=== PATIENT | female | born 1990 | race African-American/Black ===

== ENCOUNTER 2016-10-19 12:20 | Emergency (ER) | payer MEDICAID, OTHER ==
[~2016-10-19] VITALS: Ht 157.5 cm; Wt 49.9 kg
[~2016-10-19 12:20] MED LIST: CEPHALEXIN500 MG ORAL; HYDROCORTISONE28 G5 TP; PREDNISONE20 MG ORAL; benadryl
[2016-10-19 12:21] VITALS: BP 106/72
[2016-10-19 12:59] VITALS: BP 106/72
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
[2016-10-19] MEDS ORDERED: IBUPROFEN600 MG ORAL (13:07)
[2016-10-19 13:34] VITALS: BP 106/72
== END 2016-10-19 13:36 | disposition home or self-care (01) ==
LOC: EMR 12:40
DX: M25.512 Pain in left shoulder (principal); G89.4 Chronic pain syndrome
CPT/HCPCS: 99283

== ENCOUNTER 2017-02-02 14:57 | Emergency (ER) | payer MEDICAID ==
[~2017-02-02] VITALS: Ht 160 cm; Wt 59.4 kg
[~2017-02-02 14:57] MED LIST changes: +IBUPROFEN600 MG ORAL
[2017-02-02 15:48] LABS: APPEARANCE,URINE CLEAR; KETONES,URINE 1+ (NEGATIVE); LEUKOCYTE ESTERASE ,URINE 2+ (NEGATIVE); NITRITE,URINE NEGATIVE (NEGATIVE); PH,URINE 5 (4.5-8.0); PROTEIN,URINE 1+ (NEGATIVE); UROBILINOGEN,URINE 4 MG/DL (0.0-1.0)
[2017-02-02 15:54] LABS: ICTOTEST NEGATIVE
[2017-02-02 16:04] LABS: BACTERIA,URINE FEW /HPF; MUCUS,URINE MANY /LPF (NONE/OCC); SQUAMOUS EPITHELIAL CELL,UR MANY /LPF (NONE/OCC)
[2017-02-02 16:40] LABS: BASOPHILS % (AUTO) 1.2 % (0.0-2.0); EOSINOPHILS % (AUTO) 1.8 % (0.0-3.0); LYMPHOCYTES % (AUTO) 38.7 % (20.0-45.0); MEAN CORPUSCULAR HEMOGLOBIN 27.7 PG (27.0-31.0); MEAN CORPUSCULAR HGB CONC 31.6 G/DL (32.0-36.0); MEAN CORPUSCULAR VOLUME 88 FL (80-99); MEAN PLATELET VOLUME 6.7 FL (6.5-10.1); NEUTROPHILS % (AUTO) 52.3 % (45.0-75.0); PLATELET COUNT 241 K/UL (150-450); RED BLOOD COUNT 4.43 M/UL (4.20-5.40); RED CELL DISTRIBUTION WIDTH 11.7 % (11.6-14.8)
[2017-02-02 16:42] VITALS: BP 120/60
[2017-02-02 16:56] LABS: ALANINE AMINOTRANSFERASE 8 U/L (3-33); ALBUMIN/GLOBULIN RATIO 1.2 (1.0-2.7); ANION GAP 11 (5-15); ASPARTATE AMINO TRANSFERASE 14 U/L (5-40); CALCIUM 9.4 mg/dL (8.6-10.2); CARBON DIOXIDE 25 mEQ/L (20-30); CHLORIDE 102 mEQ/L (98-107); CREATININE 0.8 mg/dL (0.5-0.9); GLOMERULAR FILTRATION RATE > 60 mL/min (>60); HEMOLYSIS 2; LIPASE 30 U/L (< 60); POTASSIUM 3.8 mEQ/L (3.4-4.9); SODIUM 138 mEQ/L (135-145); TOTAL PROTEIN 7.6 g/dL (6.6-8.7)
[2017-02-02] MEDS ORDERED: PRENATAL VITAM1 EAC8 PO (18:52)
[2017-02-02] MEDS ORDERED: ZOFRAN4 M3 ORAL (18:52)
[2017-02-02 19:12] VITALS: BP 124/66
--- NOTE | 2017-02-02 22:46 | Emergency Room Report ---
History of Present Illness General Chief Complaint: Abdominal Pain Source: Patient Present Illness [facility] The patient is a 26-year-old female presenting for abdominal pain and vaginal bleeding. She states her last normal menstrual period was 4 weeks prior. She states that she is currently lightly spotting which is abnormal for her period. Pain is an 8/10 dull ache to the mid lower abdomen and does not radiate. She denies any known provoking or alleviating factors. She admits to nausea but denies vomiting. She denies any back pain. She denies any other symptoms including F, chills, back pain, CP, SOB, MEREDITH Allergies: Coded Allergies: No Known Allergies (Unverified , 05/22/13) Patient History Past Medical History: see triage record Pertinent Family History: none Last Menstrual Period: on period Now: Yes Reviewed Nursing Documentation: PMH: Agreed, PSxH: Agreed Nursing Documentation-PMH Past Medical History: No Stated History Review of Systems All Other Systems: negative except mentioned in HPI Physical Exam Vital Signs Date Time Temp Pulse Resp B/P (MAP) Pulse Ox O2 Delivery O2 Flow Rate FiO2 02/02/17 15:09 98.1 63 14 112/54 98 Room Air Sp02 EP Interpretation: reviewed, normal General Appearance: no apparent distress, alert, GCS 15, non-toxic Head: normocephalic, atraumatic Eyes: bilateral eye normal inspection, bilateral eye PERRL ENT: hearing grossly normal, normal pharynx, no angioedema, normal voice Neck: full range of motion, supple/symm/no masses Respiratory: chest non-tender, lungs clear, normal breath sounds, speaking full sentences Cardiovascular #1: regular rate, rhythm, no edema Gastrointestinal: normal inspection, normal bowel sounds, no guarding, tenderness - suprapubic Genitourinary: normal inspection, no CVA tenderness Musculoskeletal: back normal, gait/station normal, normal range of motion, non- tender, calf tenderness Neurologic: alert, oriented x3, responsive, motor strength/tone normal, sensory intact, speech normal Psychiatric: judgement/insight normal, memory normal, mood/affect normal, no suicidal/homicidal ideation Skin: normal color, no rash, warm/dry, well hydrated Medical Decision Making PA Attestation Dr. West is my supervising physician. Patient management was discussed with my supervising physician Diagnostic Impression: Primary Impression: Threatened miscarriage ER Course The patient is a 26-year-old female presenting for abdominal pain and vaginal bleeding. Differential diagnoses considered include but not limited to Early , threatened , ectopic , hemorrhagic cyst, UTI, among others PE: NAD. Afebrile. There is tenderness to palpation over suprapubic region only. Abdomen is soft. Nondistended No CVA tenderness Beta-hCG consistent with first trimester Urinalysis shows occult blood with red blood cells OB ultrasound: IUP seen with no pole The patient is informed of these results and is told that this is a threatened miscarriage. She is to follow up with her primary doctor and OB as soon as possible ER precautions given Laboratory Tests Test 02/02/17 15:32 02/02/17 16:05 Urine Color Brown Urine Appearance Clear Urine pH 5 (4.5-8.0) Urine Specific [place] 1.025 (1.005-1.035) Urine Protein 1+ (NEGATIVE) H Urine Glucose (UA) Negative (NEGATIVE) Urine Ketones 1+ (NEGATIVE) H Urine Occult Blood 3+ (NEGATIVE) H Urine Nitrite Negative (NEGATIVE) Urine Bilirubin 1+ (NEGATIVE) H Urine Ictotest Negative Urine Urobilinogen 4 MG/DL (0.0-1.0) H Urine Leukocyte Esterase 2+ (NEGATIVE) H Urine RBC 5-10 /HPF (0 - 2) H Urine WBC 2-4 /HPF (0 - 2) Urine Squamous Epithelial Cells Many /LPF (NONE/OCC) H Urine Bacteria Few /HPF (NONE) Urine Mucus Many /LPF (NONE/OCC) H Urine HCG, Qualitative Positive White Blood Count 5.0 K/UL (4.8-10.8) Red Blood Count 4.43 M/UL (4.20-5.40) Hemoglobin 12.3 G/DL (12.0-16.0) Hematocrit 38.9 % (37.0-47.0) Mean Corpuscular Volume 88 FL (80-99) Mean Corpuscular Hemoglobin 27.7 PG (27.0-31.0) Mean Corpuscular Hemoglobin Concent 31.6 G/DL (32.0-36.0) L Red Cell Distribution Width 11.7 % (11.6-14.8) Platelet Count 241 K/UL (150-450) Mean Platelet Volume 6.7 FL (6.5-10.1) Neutrophils (%) (Auto) 52.3 % (45.0-75.0) Lymphocytes (%) (Auto) 38.7 % (20.0-45.0) Monocytes (%) (Auto) 6.0 % (1.0-10.0) Eosinophils (%) (Auto) 1.8 % (0.0-3.0) Basophils (%) (Auto) 1.2 % (0.0-2.0) Sodium Level 138 mEQ/L (135-145) Potassium Level 3.8 mEQ/L (3.4-4.9) Chloride Level 102 mEQ/L (98-107) Carbon Dioxide Level 25 mEQ/L (20-30) Anion Gap 11 (5-15) Blood Urea Nitrogen 10 mg/dL (7-23) Creatinine 0.8 mg/dL (0.5-0.9) Estimate Glomerular Filtration Rate > 60 mL/min (>60) Glucose Level 82 mg/dL (74-106) Calcium Level 9.4 mg/dL (8.6-10.2) Total Bilirubin 0.4 mg/dL (0.0-1.2) Aspartate Amino Transferase (AST) 14 U/L (5-40) Alanine Aminotransferase (ALT) 8 U/L (3-33) Alkaline Phosphatase 52 U/L (35-104) Total Protein 7.6 g/dL (6.6-8.7) Albumin 4.2 g/dL (3.5-5.2) Globulin 3.4 g/dL Albumin/Globulin Ratio 1.2 (1.0-2.7) Lipase 30 U/L (< 60) Human Chorionic Gonadotropin, Quant 66572 mIU/mL Lab Results Impression Beta hCG consistent with early . UA: blood CT/MRI/US Diagnostic Results CT/MRI/US Diagnostic Results : Imaging Test Ordered: OB US Impression IUP seen with no pole Last Vital Signs Date Time Temp Pulse Resp B/P (MAP) Pulse Ox O2 Delivery O2 Flow Rate FiO2 02/02/17 19:12 98.2 72 18 124/66 99 Room Air Status: improved Disposition: HOME, SELF-CARE Condition: Improved Scripts Vit W-Ca,Fe,FA(<1 mg) ( Vitamins) 1 Each Tablet 1 EACH PO DAILY, #30 TAB Prov: KANA RAVI 02/02/17 Ondansetron* (ZOFRAN*) 4 Mg Tablet 4 MG ORAL Q6H Y for Nausea & Vomiting, #15 TAB Prov: KANA RAVI 02/02/17 Patient Instructions: Threatened Miscarriage, Abdominal Pain During Additional Instructions: I discussed my findings with the patient. All questions and concerns have been answered. Treatment and medication compliance have been addressed. Return to ED if symptoms worsen, new symptoms arise such as worsening abdominal pain, fever, vaginal bleeding, or if needed for any reason. Patient verbalized understanding of discharge instructions. The patient is to follow up with OB as soon as possible. KANA RAVI Feb 02, 2017 22:46
--- NOTE | 2017-02-03 09:24 | Diagnostic Imaging Report ---
Indication:Vaginal bleeding and pelvic pain. Positive test. Technique: Grayscale and duplex Doppler imaging of the pelvis performed utilizing a transabdominal scan and endovaginal scan. Comparison: None Findings: There is evidence of an intrauterine . Yolk sac is identified with the gestational sac which measures to 4 weeks 5 days. pole not seen. Ovaries are unremarkable bilaterally. Small amount of free fluid noted in the cul-de-sac. Impression: Intrauterine . Viability indeterminate at this time. Considerations include normal early intrauterine versus is incomplete spontaneous . Followup ultrasound and assessment of serial quantitative beta-hCG is recommended.
== END 2017-02-02 19:14 | disposition home or self-care (01) ==
LOC: EMR 15:55
DX: O20.0 Threatened abortion (principal); Z3A.01 Less than 8 weeks gestation of pregnancy
CPT/HCPCS: 36415; 76801; 76830; 80053; 81003; 81025; 83690; 84702; 85025; 96361; 96374; 99284; J2405

== ENCOUNTER 2017-02-21 13:25 | Emergency (ER) | payer MEDICAID ==
[~2017-02-21] VITALS: Ht 160 cm; Wt 59.9 kg
[~2017-02-21 13:25] MED LIST changes: +PRENATAL VITAM1 EAC8 PO; +ZOFRAN4 M3 ORAL
[2017-02-21 13:46] VITALS: BP 97/60
[2017-02-21] MEDS ORDERED: NKM (13:50)
[2017-02-21 14:22] LABS: APPEARANCE,URINE SLIGHTLY CLOUDY; KETONES,URINE NEGATIVE (NEGATIVE); LEUKOCYTE ESTERASE ,URINE 2+ (NEGATIVE); NITRITE,URINE NEGATIVE (NEGATIVE); PH,URINE 6.5 (4.5-8.0); PROTEIN,URINE NEGATIVE (NEGATIVE); UROBILINOGEN,URINE NORMAL MG/DL (0.0-1.0)
[2017-02-21 14:45] LABS: BACTERIA,URINE FEW /HPF; SQUAMOUS EPITHELIAL CELL,UR MANY /LPF (NONE/OCC)
[2017-02-21 15:02] LABS: BASOPHILS % (AUTO) 0.5 % (0.0-2.0); EOSINOPHILS % (AUTO) 1.2 % (0.0-3.0); LYMPHOCYTES % (AUTO) 31.6 % (20.0-45.0); MEAN CORPUSCULAR HEMOGLOBIN 28.7 PG (27.0-31.0); MEAN CORPUSCULAR HGB CONC 32.5 G/DL (32.0-36.0); MEAN CORPUSCULAR VOLUME 88 FL (80-99); MEAN PLATELET VOLUME 7.6 FL (6.5-10.1); MONOCYTES % (AUTO) 6.4 % (1.0-10.0); NEUTROPHILS % (AUTO) 60.3 % (45.0-75.0); PLATELET COUNT 235 K/UL (150-450); RED BLOOD COUNT 4.31 M/UL (4.20-5.40); RED CELL DISTRIBUTION WIDTH 12.1 % (11.6-14.8); WHITE BLOOD COUNT 5.1 K/UL (4.8-10.8)
[2017-02-21 15:12] LABS: INR 0.9 (0.9-1.1); PROTHROMBIN TIME 9.7 SEC (9.30-11.50)
[2017-02-21 15:25] LABS: ALANINE AMINOTRANSFERASE 28 U/L (12-78); ANION GAP 13 mmol/L (5-15); ASPARTATE AMINO TRANSFERASE 15 U/L (15-37); CALCIUM 9.8 MG/DL (8.5-10.1); CARBON DIOXIDE 24 MMOL/L (21-32); CHLORIDE 101 MMOL/L (98-107); CREATININE 0.6 MG/DL (0.55-1.30); GLOMERULAR FILTRATION RATE > 60 mL/min (>60); POTASSIUM 3.6 MMOL/L (3.5-5.1); SODIUM 138 MMOL/L (136-145)
[2017-02-21] MEDS ORDERED: CEPHALEXIN500 MG ORAL (15:57)
[2017-02-21 16:08] VITALS: BP 109/69
--- NOTE | 2017-02-23 13:17 | Emergency Room Report ---
History of Present Illness General Chief Complaint: Abdominal Pain Source: Patient Present Illness HPI The patient is a 26 yo F at approximately 5 weeks gestation presenting for abdominal pain which began today. She states pain is a 5/10 dull ache to the lower abdomen with no known provoking or relieving factors. She does admit to increased urinary frequency. She denies other symptoms including abdominal cramping, hematuria, vaginal bleeding, other vaginal DC, fever, chills, N, V Allergies: Coded Allergies: No Known Allergies (Unverified , 05/22/13) Patient History Past Medical History: see triage record Pertinent Family History: none Now: Yes : 3 Para: 1 Reviewed Nursing Documentation: PMH: Agreed, PSxH: Agreed Nursing Documentation-PMH Past Medical History: No Stated History Review of Systems All Other Systems: negative except mentioned in HPI Physical Exam Vital Signs Date Time Temp Pulse Resp B/P (MAP) Pulse Ox O2 Delivery O2 Flow Rate FiO2 02/21/17 13:46 97.2 65 16 97/60 100 Room Air Sp02 EP Interpretation: reviewed, normal General Appearance: no apparent distress, alert, GCS 15, non-toxic Head: normocephalic, atraumatic Eyes: bilateral eye normal inspection, bilateral eye PERRL ENT: hearing grossly normal, normal pharynx, no angioedema, normal voice Neck: full range of motion, supple/symm/no masses Respiratory: chest non-tender, lungs clear, normal breath sounds, speaking full sentences Cardiovascular #1: regular rate, rhythm, no edema Gastrointestinal: normal bowel sounds, soft, non-distended, no guarding, no rebound, tenderness - suprapubic Rectal: deferred Genitourinary: normal inspection, no CVA tenderness Musculoskeletal: back normal, gait/station normal, normal range of motion, non- tender Neurologic: alert, oriented x3, responsive, motor strength/tone normal, sensory intact, speech normal Psychiatric: judgement/insight normal, memory normal, mood/affect normal, no suicidal/homicidal ideation Skin: normal color, no rash, warm/dry, well hydrated Lymphatic: no adenopathy Medical Decision Making PA Attestation Dr. Sandoval is my supervising physician. Patient management was discussed with my supervising physician Diagnostic Impression: Primary Impression: Urinary tract infection affecting ER Course The patient is a 26 yo F at approximately 5 weeks gestation presenting for abdominal pain DDx considered but not limited to: threatened miscarriage, UTI, PID, ectopic , among others, appendicitis PE: Afebrile. NAD RRR Lungs CTA bilat Abd is soft and ttp over suprapubic region only. Normal BS. Non distended. UA:No leukocytosis Beta HCG appropriate for gestational age UA: bacteria, WBCs, and blood present. The patient will be treated for UTI and is told she needs to see OB NEREYDA for follow up. If she experiences any vaginal bleeding or abd pain or worsening symptoms, she was instructed to return to ER Labs Test 02/21/17 13:51 02/21/17 14:20 Urine Color Yellow Urine Appearance Slightly cloudy Urine pH 6.5 (4.5-8.0) Urine Specific [place] 1.010 (1.005-1.035) Urine Protein Negative (NEGATIVE) Urine Glucose (UA) Negative (NEGATIVE) Urine Ketones Negative (NEGATIVE) Urine Occult Blood 3+ (NEGATIVE) Urine Nitrite Negative (NEGATIVE) Urine Bilirubin Negative (NEGATIVE) Urine Urobilinogen Normal MG/DL (0.0-1.0) Urine Leukocyte Esterase 2+ (NEGATIVE) Urine RBC 2-4 /HPF (0 - 2) Urine WBC 5-10 /HPF (0 - 2) Urine Squamous Epithelial Cells Many /LPF (NONE/OCC) Urine Bacteria Few /HPF (NONE) White Blood Count 5.1 K/UL (4.8-10.8) Red Blood Count 4.31 M/UL (4.20-5.40) Hemoglobin 12.3 G/DL (12.0-16.0) Hematocrit 38.0 % (37.0-47.0) Mean Corpuscular Volume 88 FL (80-99) Mean Corpuscular Hemoglobin 28.7 PG (27.0-31.0) Mean Corpuscular Hemoglobin Concent 32.5 G/DL (32.0-36.0) Red Cell Distribution Width 12.1 % (11.6-14.8) Platelet Count 235 K/UL (150-450) Mean Platelet Volume 7.6 FL (6.5-10.1) Neutrophils (%) (Auto) 60.3 % (45.0-75.0) Lymphocytes (%) (Auto) 31.6 % (20.0-45.0) Monocytes (%) (Auto) 6.4 % (1.0-10.0) Eosinophils (%) (Auto) 1.2 % (0.0-3.0) Basophils (%) (Auto) 0.5 % (0.0-2.0) Prothrombin Time 9.7 SEC (9.30-11.50) Prothromb Time International Ratio 0.9 (0.9-1.1) Activated Partial Thromboplast Time 27 SEC (23-33) Sodium Level 138 MMOL/L (136-145) Potassium Level 3.6 MMOL/L (3.5-5.1) Chloride Level 101 MMOL/L (98-107) Carbon Dioxide Level 24 MMOL/L (21-32) Anion Gap 13 mmol/L (5-15) Blood Urea Nitrogen 7 mg/dL (7-18) Creatinine 0.6 MG/DL (0.55-1.30) Estimat Glomerular Filtration Rate > 60 mL/min (>60) Glucose Level 77 MG/DL (74-106) Calcium Level 9.8 MG/DL (8.5-10.1) Total Bilirubin 0.3 MG/DL (0.2-1.0) Aspartate Amino Transf (AST/SGOT) 15 U/L (15-37) Alanine Aminotransferase (ALT/SGPT) 28 U/L (12-78) Alkaline Phosphatase 53 U/L (46-116) Total Protein 8.0 G/DL (6.4-8.2) Albumin 4.0 G/DL (3.4-5.0) Globulin 4.0 g/dL Albumin/Globulin Ratio 1.0 (1.0-2.7) Human Chorionic Gonadotropin, Quant 46526 mIU/mL (1-6) Lab Results Impression No leukocytosis Beta HCG appropriate for gestational age UA: bacteria, WBCs, and blood present. Last Vital Signs Date Time Temp Pulse Resp B/P (MAP) Pulse Ox O2 Delivery O2 Flow Rate FiO2 02/21/17 16:08 97.2 71 19 109/69 100 Room Air Status: improved Disposition: HOME, SELF-CARE Condition: Improved Scripts Cephalexin* (KEFLEX*) 500 Mg Capsule 500 MG ORAL EVERY 12 HOURS, #14 CAP 0 Refills Prov: KANA RAVI 02/21/17 Patient Instructions: Urinary Tract Infection, Abdominal Pain During Additional Instructions: I discussed my findings with the patient. All questions and concerns have been answered. Treatment and medication compliance have been addressed. Return to ED if symptoms worsen, new symptoms arise, or if needed for any reason. Patient verbalized understanding of discharge instructions. Please follow up with OB as soon as possible KANA RAVI Feb 23, 2017 13:17
== END 2017-02-21 16:08 | disposition home or self-care (01) ==
LOC: EMR 14:05
DX: O23.41 Unspecified infection of urinary tract in pregnancy, first trimester (principal); Z3A.01 Less than 8 weeks gestation of pregnancy
CPT/HCPCS: 36415; 80053; 81003; 84702; 85025; 85610; 85730; 99283

== ENCOUNTER 2017-04-11 10:34 | Emergency (ER) | payer MEDICAID ==
[~2017-04-11] VITALS: Ht 157.5 cm; Wt 61.2 kg
[~2017-04-11 10:34] MED LIST changes: +NKM
[2017-04-11] MEDS ORDERED: Sodium Chloride 500ML 500 ML IV ONE (10:57)
[2017-04-11] MEDS ORDERED: Acetaminophen 500mg (ES) tab ORAL ONE (11:15)
[2017-04-11 11:29] LABS: APPEARANCE,URINE CLEAR; KETONES,URINE NEGATIVE (NEGATIVE); LEUKOCYTE ESTERASE ,URINE 3+ (NEGATIVE); NITRITE,URINE NEGATIVE (NEGATIVE); PH,URINE 6.5 (4.5-8.0); PROTEIN,URINE NEGATIVE (NEGATIVE); UROBILINOGEN,URINE NORMAL MG/DL (0.0-1.0)
[2017-04-11 11:37] LABS: ANION GAP 10 mmol/L (5-15); CALCIUM 8.7 MG/DL (8.5-10.1); CARBON DIOXIDE 22 MMOL/L (21-32); CHLORIDE 104 MMOL/L (98-107); CREATININE 0.6 MG/DL (0.55-1.30); GLOMERULAR FILTRATION RATE > 60 mL/min (>60); SODIUM 136 MMOL/L (136-145)
[2017-04-11 11:40] LABS: RBC,URINE 0-2 /HPF (0 - 2)
[2017-04-11 11:41] LABS: BACTERIA,URINE FEW /HPF; SQUAMOUS EPITHELIAL CELL,UR MODERATE /LPF (NONE/OCC)
[2017-04-11 11:42] LABS: ALANINE AMINOTRANSFERASE 23 U/L (12-78); ALBUMIN/GLOBULIN RATIO 0.8 (1.0-2.7); ASPARTATE AMINO TRANSFERASE 29 U/L (15-37); LIPASE 185 U/L (73-393); TOTAL PROTEIN 7.6 G/DL (6.4-8.2)
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
[2017-04-11] MEDS ORDERED: TYLENOL EXTRA500 MG ORAL (12:43)
[2017-04-11 13:00] VITALS: BP 98/61
--- NOTE | 2017-04-11 15:42 | Diagnostic Imaging Report ---
Indication: Reason For Exam: PAIN, positive test Technique: Transabdominal images Comparison: none Findings: There is a single live intrauterine . There is positive heart activity, heart rate 140 bpm. Posterior fundal placenta, there is internal cervical os. The cervix is closed, measures 4.7 cm in length. Grossly normal amniotic fluid volume. No evidence of subchorionic hemorrhage measurements as follows: biparietal diameter 31 mm, 15 weeks 6 days; and circumference 117 mm, 15 weeks 5 days; abdominal circumference 102 mm, 16 weeks 2 days. Assessment gestational age by average ultrasound measurements is 15 weeks 6 days. Estimated gestational age by dates 12 weeks 4 days. Estimated date of delivery 09/27/2017 Due to very early stage of and emergent nature of the exam, only limited assessment of the anatomy was performed. There is a 3 vessel cord demonstrated. spine appears normal. Normal cord insertion. Normal four-chamber heart Impression: 15 week 6 day, by average of ultrasound measurements, single live intrauterine . No unusual features
== END 2017-04-11 13:00 | disposition home or self-care (01) ==
LOC: EMR 10:50
DX: O03.9 Complete or unspecified spontaneous abortion without complication (principal); Z3A.15 15 weeks gestation of pregnancy; O26.892 Other specified pregnancy related conditions, second trimester; M79.652 Pain in left thigh; V43.52XA Car driver injured in collision with other type car in traffic accident, initial encounter; Y92.410 Unspecified street and highway as the place of occurrence of the external cause
CPT/HCPCS: 36415; 76805; 80053; 81003; 81025; 83690; 84702; 87086; 96360; 99284; J7040

== ENCOUNTER 2017-06-23 11:08 | Emergency (ER) | payer MEDICAID ==
[~2017-06-23] VITALS: Ht 160 cm; Wt 59.0 kg
[~2017-06-23 11:08] MED LIST changes: +TYLENOL EXTRA500 MG ORAL
[2017-06-23 11:19] VITALS: BP 103/63
[2017-06-23] MEDS ORDERED: KEFLEX500 MG ORAL (11:33)
[2017-06-23 11:43] VITALS: BP 103/63
--- NOTE | 2017-06-26 14:15 | Emergency Room Report ---
History of Present Illness General Chief Complaint: Skin Rash/Abscess Source: Patient Present Illness HPI 26-year-old female presents to ED for evaluation. Patient notes pain and swelling to her right forearm since yesterday. She got a insect bite. Denies fevers or chills. Pain is throbbing, 6/10, nonradiating. Denies any discharge. Patient states she is about a 6 month . No complications with the . Has care. No other aggravating or relieving factors. Denies any other associated symptom Allergies: Coded Allergies: No Known Allergies (Unverified , 05/22/13) Patient History Past Medical History: none Past Surgical History: none Pertinent Family History: none Social History: Denies: smoking, alcohol use, drug use Last Menstrual Period: 6 months Now: Yes Immunizations: UTD Reviewed Nursing Documentation: PMH: Agreed, PSxH: Agreed Nursing Documentation-PMH Past Medical History: No Stated History Review of Systems All Other Systems: negative except mentioned in HPI Physical Exam Vital Signs Date Time Temp Pulse Resp B/P (MAP) Pulse Ox O2 Delivery O2 Flow Rate FiO2 06/23/17 11:10 97.6 89 18 103/63 98 Room Air 97.5 Sp02 EP Interpretation: reviewed, normal General Appearance: no apparent distress, alert, GCS 15, non-toxic Head: normocephalic Eyes: bilateral eye normal inspection, bilateral eye PERRL ENT: normal ENT inspection Neck: normal inspection Respiratory: normal inspection Cardiovascular #1: normal inspection Gastrointestinal: normal inspection Rectal: deferred Genitourinary: no CVA tenderness Musculoskeletal: normal inspection Neurologic: alert, oriented x3, responsive, motor strength/tone normal, sensory intact, speech normal Psychiatric: normal inspection Skin: other - induration/erythema to R forearm. no fluctuance or discharge Lymphatic: normal inspection Medical Decision Making Diagnostic Impression: Primary Impression: Cellulitis Qualified Codes: L03.113 - Cellulitis of right upper limb ER Course Hospital Course 26-year-old female presents to ED with redness, swelling to R forearm Differential diagnoses include: Cellulitis, dermatitis, insect bite, abscess Clinical course Patient placed on stretcher. After initial history, physical exam reveals a young female in no acute distress. On exam there is a site for mild erythema and induration to the right forearm. There is no fluctuance. There is no tenderness. Full range of motion is noted in the right elbow nd there is no concern for any signs of infection to the joint. Discussed findings with the patient. We will prescribe antibiotics which are safe in . Also recommend warm compresses Diagnosis - cellulitis stable and discharged to home with prescription for Keflex. Instructed to followup with PMD. Instructed return to ED if symptoms recur or worsen Last Vital Signs Date Time Temp Pulse Resp B/P (MAP) Pulse Ox O2 Delivery O2 Flow Rate FiO2 06/23/17 11:43 97.5 18 103/63 98 Room Air 97.5 06/23/17 11:10 89 Status: improved Disposition: HOME, SELF-CARE Condition: Stable Scripts Cephalexin* (KEFLEX*) 500 Mg Capsule 500 MG ORAL Q6H, #28 CAP 0 Refills Prov: CHIKA DAILY M.D. 06/23/17 Patient Instructions: Cellulitis, [id number] CHIKA DAILY M.D. Jun 26, 2017 14:15
== END 2017-06-23 11:44 | disposition home or self-care (01) ==
LOC: EMR 11:23
DX: O26.892 Other specified pregnancy related conditions, second trimester (principal); L03.113 Cellulitis of right upper limb
CPT/HCPCS: 99283

== ENCOUNTER 2018-01-19 08:52 | Emergency (ER) | payer MEDICAID ==
[~2018-01-19] VITALS: Ht 157.5 cm; Wt 49.9 kg
[~2018-01-19 08:52] MED LIST changes: +KEFLEX500 MG ORAL
[2018-01-19] MEDS ORDERED: Ipratropium 0.02% Inh Soln 2.5ml UD HHN ONE (09:15)
[2018-01-19] MEDS ORDERED: Albuterol ud Inhalation HHN ONE (09:15)
--- NOTE | 2018-01-19 09:15 | Emergency Room Report ---
History of Present Illness General Chief Complaint: Upper Respiratory Illness Source: Patient Present Illness HPI Patient presents with complaints of sore throat and body ache Subjective low-grade fevers Denies any headache denies any posterior neck pain denies any chest pain or shortness of breath denies any cough She had a mild runny nose Denies any rash denies any abdominal pain Sore throat has been ongoing for the past 2-3 days now Allergies: Coded Allergies: No Known Allergies (Unverified , 05/22/13) Patient History Past Medical History: see triage record Pertinent Family History: none Last Menstrual Period: 01/05/2018 Reviewed Nursing Documentation: PMH: Agreed; PSxH: Agreed Nursing Documentation-PMH Past Medical History: No Stated History Review of Systems All Other Systems: negative except mentioned in HPI Physical Exam Vital Signs Date Time Temp Pulse Resp B/P (MAP) Pulse Ox O2 Delivery O2 Flow Rate FiO2 01/19/18 08:58 98.9 102 16 109/60 98 Room Air 99.0 Sp02 EP Interpretation: reviewed, normal General Appearance: well appearing, no apparent distress Head: normocephalic, atraumatic Eyes: bilateral eye PERRL, bilateral eye EOMI ENT: hearing grossly normal, TMs + canals normal, uvula midline, pharyngeal erythema - With exudates Neck: full range of motion, supple, no meningismus, no bony tend Respiratory: lungs clear, no rhonchi, no respiratory distress, no retraction, no accessory muscle use Cardiovascular #1: normal peripheral pulses, regular rate, rhythm, no edema, no gallop, no JVD, no murmur Gastrointestinal: normal bowel sounds, non tender, soft, no mass, no organomegaly, non-distended, no guarding, no hernia, no pulsatile mass, no rebound Genitourinary: no CVA tenderness Musculoskeletal: normal inspection Neurologic: oriented x3, responsive, gas operations superintendent III-XII nml as tested, motor strength/ tone normal, sensory intact Psychiatric: mood/affect normal Skin: normal color, no rash, warm/dry, palpation normal Lymphatic: normal inspection, no adenopathy Medical Decision Making Diagnostic Impression: Primary Impression: Pharyngitis ER Course Multiple differentials considered Patient's findings are consistent with likely bacterial pharyngitis At this time I do not suspect retropharyngeal abscess or peritonsillar abscess Patient treated symptomatically in the emergency room Placed on antibiotics and will have initial conservative outpatient trial Last Vital Signs Date Time Temp Pulse Resp B/P (MAP) Pulse Ox O2 Delivery O2 Flow Rate FiO2 01/19/18 09:02 102 16 Room Air 01/19/18 08:58 98.9 109/60 98 99.0 Status: improved Disposition: HOME, SELF-CARE Condition: Improved Scripts Ibuprofen* (MOTRIN*) 600 Mg Tablet 600 MG ORAL Q8H PRN for For Pain, #20 TAB 0 Refills Prov: Liliam Altamn DO 01/19/18 Amoxicillin* (AMOXIL*) 500 Mg Capsule 500 MG ORAL THREE TIMES A DAY, #21 CAP Prov: Liliam Altman DO 01/19/18 Additional Instructions: Patient is provided with the discharge instructions notified to follow up with primary doctor in the next 2-3 days otherwise return to the er with any worsening symptoms. Please note that this report is being documented using imagoo technology. This can lead to erroneous entry secondary to incorrect interpretation by the dictating instrument. Liliam Altman DO Jan 19, 2018 09:15
[2018-01-19] MEDS ORDERED: Dexamethasone 4mg/ml vial IM ONE (09:30)
[2018-01-19] MEDS ORDERED: IBUPROFEN600 MG ORAL (09:58)
[2018-01-19] MEDS ORDERED: AMOXICILLIN500 MG ORAL (09:58)
[2018-01-19 10:10] VITALS: BP 109/60
== END 2018-01-19 10:08 | disposition home or self-care (01) ==
LOC: EMR 09:25
DX: J02.9 Acute pharyngitis, unspecified (principal)
CPT/HCPCS: 96372; 99284; J1100

== ENCOUNTER 2018-03-29 12:30 | Emergency (ER) | payer SELFPAY ==
[~2018-03-29] VITALS: Ht 160 cm; Wt 52.6 kg
[~2018-03-29 12:30] MED LIST changes: +AMOXICILLIN500 MG ORAL
[2018-03-29 12:51] VITALS: BP 108/47
--- NOTE | 2018-03-29 12:58 | Emergency Room Report ---
History of Present Illness General Chief Complaint: Skin Rash/Abscess Source: Patient Present Illness HPI 27-year-old female presents to the emergency department complaining of exacerbation of her eczema on the posterior thighs bilaterally as well as behind each knee. Patient reports she is out of her triamcinolone medication. Patient denies pain. Pt. denies fevers, chills or swollen tender lymph nodes. Denies lesions/rashes elsewhere on the body. Denies new medications or body washes or creams. Denies swelling of the lips, tongue , throat or airway. Denies wheezing, or shortness of breath. Denies recent travel, recent illness or ill contacts. denies blisters, oral lesions, or sloughing of the skin Allergies: Coded Allergies: No Known Allergies (Unverified , 05/22/13) Patient History Past Medical History: see triage record Past Surgical History: none Pertinent Family History: none Last Menstrual Period: 03/19/2018 Now: No Immunizations: UTD Reviewed Nursing Documentation: PMH: Agreed; PSxH: Agreed Nursing Documentation-PMH Past Medical History: No History, Except For Hx Cardiac Problems: No - Eczema Hx Hypertension: No Hx Pacemaker: No Hx Asthma: No Hx COPD: No Hx Diabetes: No Hx Cancer: No Hx Gastrointestinal Problems: No Hx Dialysis: No History Of Psychiatric Problem: No Hx Neurological Problems: No Hx Cerebrovascular Accident: No Hx Seizures: No Review of Systems All Other Systems: negative except mentioned in HPI Physical Exam Vital Signs Date Time Temp Pulse Resp B/P (MAP) Pulse Ox O2 Delivery O2 Flow Rate FiO2 03/29/18 12:51 97.3 61 14 108/47 97 Room Air Sp02 EP Interpretation: reviewed, normal General Appearance: no apparent distress, alert, GCS 15, non-toxic Head: normocephalic, atraumatic Eyes: bilateral eye normal inspection, bilateral eye PERRL ENT: hearing grossly normal, normal voice, other - no stridor Neck: full range of motion Respiratory: chest non-tender, lungs clear, normal breath sounds, no respiratory distress, no accessory muscle use, no wheezing, speaking full sentences Cardiovascular #1: regular rate, rhythm Musculoskeletal: back normal, gait/station normal, normal range of motion, non- tender Neurologic: alert, oriented x3, responsive, motor strength/tone normal, sensory intact, speech normal, grossly normal Psychiatric: judgement/insight normal Skin: normal color, warm/dry, well hydrated, rash - erythematous thickened plaques posterior thighs and knees bilaterally, no blisters or vesicles, no crusting , warmth, pus or bleeding. Lymphatic: no adenopathy Medical Decision Making PA Attestation Dr. Altman is my supervising Physician whom patient management has been discussed with. Diagnostic Impression: Primary Impression: Eczema Qualified Codes: L20.82 - Flexural eczema ER Course 27-year-old female presents to the emergency department complaining of exacerbation of her eczema on the posterior thighs bilaterally as well as behind each knee. Patient reports she is out of her triamcinolone medication. Patient denies pain. Pt. denies fevers, chills or swollen tender lymph nodes. Denies lesions/rashes elsewhere on the body. Denies new medications or body washes or creams. Denies swelling of the lips, tongue , throat or airway. Denies wheezing, or shortness of breath. Denies recent travel, recent illness or ill contacts. denies blisters, oral lesions, or sloughing of the skin Ddx considered but are not limited to cellulitis, scabies, shingles, varicella, dermatitis, urticaria, eczema, tinea, viral exanthem, SJS Vital signs: are WNL, pt. is afebrile H&PE are most consistent with eczema exacerbation without evidence of secondary infection. ORDERS: none required at this time, the diagnosis is clinical ED INTERVENTIONS: None required at this time. DISCHARGE: At this time pt. is stable for d/c to home. Will provide printed patient care instructions, and any necessary prescriptions. Care plan and follow up instructions have been discussed with the patient prior to discharge. Last Vital Signs Date Time Temp Pulse Resp B/P (MAP) Pulse Ox O2 Delivery O2 Flow Rate FiO2 03/29/18 12:51 97.3 61 14 108/47 97 Room Air Disposition: HOME, SELF-CARE Condition: Stable Scripts Triamcinolone Acet (Triamcinolone Acetonide) 15 Gm Cream..g. 1 APPLIC TP BID, #15 GM 3 Refills Prov: Margarita Wood 03/29/18 Patient Instructions: Rash Additional Instructions: Take medications as directed. Follow up with a Primary Care Provider in 3-5 days for DERMATOLOGY REFERRAL , even if your symptoms have resolved. --Please review list of primary care clinics, if you do not already have a primary care provider Return sooner to ED if new symptoms occur, or current symptoms become worse. - Please note that this Emergency Department Report was dictated using [employer] winder technology software, occasionally this can lead to erroneous entry secondary to interpretation by the dictation equipment. Margarita Wood Mar 29, 2018 12:58
[2018-03-29] MEDS ORDERED: KENALOG 0.5% CR15 GM TP (12:59)
[2018-03-29 13:00] VITALS: BP 112/68
== END 2018-03-29 13:15 | disposition home or self-care (01) ==
LOC: EMR 13:14
DX: L20.82 Flexural eczema (principal)
CPT/HCPCS: 99282

== ENCOUNTER 2018-07-04 11:51 | Emergency (ER) | payer MEDICAID ==
[~2018-07-04] VITALS: Ht 160 cm; Wt 49.9 kg
[~2018-07-04 11:51] MED LIST changes: +KENALOG 0.5% CR15 GM TP
[2018-07-04 11:54] VITALS: BP 107/60
[2018-07-04] MEDS ORDERED: NKM (11:59)
--- NOTE | 2018-07-04 12:16 | NUR ---
ED Nurse Note: PT. AAOX4. AMBULATORY. CAME IN TO ER DUE TO ECZEMA BREAKOUT ON BILATERAL ARMS AND BILATERAL LEGS X 2 WEEKS AGO. PT ALSO C/O MEDIAL ABDOMINAL PAIN X 2 WEEKS, NAUSEA AND 2 EPISODES OF VOMITING X THIS AM, AND DIARRHEA X 2 WEEKS.
--- NOTE | 2018-07-04 12:19 | Emergency Room Report ---
History of Present Illness General Chief Complaint: General Complaint Source: Patient Present Illness HPI 27 YO female presents to the emergency department complaining of abdominal pain with several episodes of diarrhea and nausea, vomiting x 2 weeks. Patient states her abdominal pain is intermittent in nature and describes 10/10 in severity cramping sensations. Patient denies and states that her last menstrual cycle was on June 23. Patient states she just gave last August she states that she is no longer breast-feeding. Patient denies taking control. She denies recent travel or ill contacts with similar symptoms she denies fevers or chills denies blood in the vomit or stool and denies black tarry stools. The patient also has a secondary complaint of exacerbation of her eczema and states that she is currently having a breakout in the bilateral forearms.She states she is out of her eczema cream and is requesting a refill. Allergies: Coded Allergies: No Known Allergies (Unverified , 07/04/18) Patient History Past Medical History: see triage record Past Surgical History: none Pertinent Family History: none Last Menstrual Period: 06/23/18 Now: No Reviewed Nursing Documentation: PMH: Agreed; PSxH: Agreed Nursing Documentation-PMH Past Medical History: No History, Except For Hx Cardiac Problems: No - ECZEMA Hx Hypertension: No Hx Pacemaker: No Hx Asthma: No Hx COPD: No Hx Diabetes: No Hx Cancer: No Hx Gastrointestinal Problems: No Hx Dialysis: No Hx Neurological Problems: No Hx Cerebrovascular Accident: No Hx Seizures: No Review of Systems All Other Systems: negative except mentioned in HPI Physical Exam Vital Signs Date Time Temp Pulse Resp B/P (MAP) Pulse Ox O2 Delivery O2 Flow Rate FiO2 07/04/18 11:54 78 16 Room Air 07/04/18 11:54 98.1 107/60 98 Sp02 EP Interpretation: reviewed, normal General Appearance: no apparent distress, alert, GCS 15, non-toxic Head: normocephalic, atraumatic Eyes: bilateral eye normal inspection, bilateral eye PERRL ENT: hearing grossly normal, normal voice Neck: full range of motion Respiratory: lungs clear, normal breath sounds, speaking full sentences Cardiovascular #1: regular rate, rhythm Gastrointestinal: normal bowel sounds - in all 4 quadrants, non tender, soft, non-distended, no guarding, other Rectal: deferred Genitourinary: normal inspection, no CVA tenderness Musculoskeletal: back normal, gait/station normal, normal range of motion, non- tender Neurologic: alert, oriented x3, responsive, motor strength/tone normal, sensory intact, speech normal, grossly normal Psychiatric: judgement/insight normal Skin: normal color, warm/dry, well hydrated, rash - eczematous plaques on bilateral AC's and posterior knees. Lymphatic: no adenopathy Medical Decision Making PA Attestation Dr. miller is my supervising Physician whom patient management has been discussed with. Diagnostic Impression: Primary Impression: Positive test Additional Impressions: Abdominal pain during in first trimester eczema ER Course 27 YO female presents to the emergency department complaining of abdominal pain with several episodes of diarrhea and nausea, vomiting x 2 weeks. Patient states her abdominal pain is intermittent in nature and describes 10/10 in severity cramping sensations. Patient denies and states that her last menstrual cycle was on June 23. Patient states she just gave last August she states that she is no longer breast-feeding. Patient denies taking control. She denies recent travel or ill contacts with similar symptoms she denies fevers or chills denies blood in the vomit or stool and denies black tarry stools. The patient also has a secondary complaint of exacerbation of her eczema and states that she is currently having a breakout in the bilateral forearms.She states she is out of her eczema cream and is requesting a refill. Ddx considered but are not limited to Diverticulitis, acute appy, diarrhea,UC, PUD, GE, pancreatitis, gallstone, UTI, Vital signs: are WNL, pt. is afebrile H&PE are most consistent with eczema exacerbation and gastroenteritis -non- hemorrhagic ORDERS: UA:: Unremarkable -Urine Hcg: Positive -Pelvic OB US: IUP @11wks 2 days with FHR 146 ED INTERVENTIONS: -- GI Cocktail -Zofran PO -I do not identify an emergent condition at this time. With current presentation , pt. is stable for close outpatient follow up and conservative treatment. D/ w pt. to return promptly to ED with worsening or new symptoms.- Pt. verbalizes' understanding and agreement with proposed treatment plan. DISCHARGE: At this time pt. is stable for d/c to home. Will provide printed patient care instructions, and any necessary prescriptions. Care plan and follow up instructions have been discussed with the patient prior to discharge. Labs Test 07/04/18 12:17 07/04/18 15:14 Urine Color Yellow Urine Appearance Clear Urine pH 7 (4.5-8.0) Urine Specific [place] 1.015 (1.005-1.035) Urine Protein 1+ (NEGATIVE) Urine Glucose (UA) Negative (NEGATIVE) Urine Ketones 1+ (NEGATIVE) Urine Blood Negative (NEGATIVE) Urine Nitrite Negative (NEGATIVE) Urine Bilirubin Negative (NEGATIVE) Urine Urobilinogen 1 MG/DL (0.0-1.0) Urine Leukocyte Esterase 2+ (NEGATIVE) Urine RBC 0 /HPF (0 - 2) Urine WBC 2-4 /HPF (0 - 2) Urine Squamous Epithelial Cells Few /LPF (NONE/OCC) Urine Bacteria Occasional /HPF (NONE) Urine Mucus Few /LPF (NONE/OCC) Urine HCG, Qualitative Positive (NEGATIVE) Human Chorionic Gonadotropin, Qual Positive (NEGATIVE) CT/MRI/US Diagnostic Results CT/MRI/US Diagnostic Results : Imaging Test Ordered: OB 1st trimester US Impression IUP 11wks 2 days , with FHR 146 Last Vital Signs Date Time Temp Pulse Resp B/P (MAP) Pulse Ox O2 Delivery O2 Flow Rate FiO2 07/04/18 11:54 98.1 78 16 107/60 98 Room Air Status: improved Disposition: HOME, SELF-CARE Condition: Stable Scripts Triamcinolone Acet (Triamcinolone Acetonide) 15 Gm Cream..g. 1 APPLIC APPLIC BID, #15 GM 2 Refills Prov: Margarita Wood 07/04/18 Metoclopramide Hcl* (REGLAN*) 5 Mg Tablet 5 MG ORAL EVERY 6 HOURS, #15 TAB Prov: Margarita Wood 07/04/18 Vit #91/Fe Fum/Fa/Dha ( + DHA COMBO PACK) 1 Each Combo..pkg 1 EACH PO DAILY, #1 PACK Prov: Margarita Wood 07/04/18 Patient Instructions: Abdominal Pain During , [id number] Additional Instructions: Take medications as directed. Follow up with a OBGYN within 3 days, even if your symptoms have resolved. Return sooner to ED if new symptoms occur, or current symptoms become worse. - Please note that this Emergency Department Report was dictated using [employer] truck trailer technology software, occasionally this can lead to erroneous entry secondary to interpretation by the dictation equipment. Margarita Wood Jul 04, 2018 12:19
[2018-07-04] MEDS ORDERED: Lidocaine 2% Visc 15ml soln ORAL ONE (12:30)
[2018-07-04] MEDS ORDERED: Mylanta II UD 30ml ORAL ONE (12:30)
[2018-07-04] MEDS ORDERED: Dicyclomine 10mg Cap ORAL ONE (12:30)
[2018-07-04 12:37] LABS: APPEARANCE,URINE CLEAR; BILIRUBIN, URINE NEGATIVE (NEGATIVE); GLUCOSE, URINE (UA) NEGATIVE (NEGATIVE); KETONES,URINE 1+ (NEGATIVE); LEUKOCYTE ESTERASE ,URINE 2+ (NEGATIVE); NITRITE,URINE NEGATIVE (NEGATIVE); PH,URINE 7 (4.5-8.0); PROTEIN,URINE 1+ (NEGATIVE); UROBILINOGEN,URINE 1 MG/DL (0.0-1.0)
[2018-07-04 12:46] LABS: COLOR,URINE YELLOW
--- NOTE | 2018-07-04 15:08 | Diagnostic Imaging Report ---
Indication: Lower abdominal pain, patient Technique: Transabdominal and transvaginal images. Doppler interrogation of the ovaries Comparison: none Findings: Uterus measures 13.4 cm length by 6.7 cm AP. Within the endometrium, there is a gestational sac. This demonstrates a pole with a crown-rump length of 4.4 cm, corresponding to an estimated gestational age of 11 weeks 2 days. pole demonstrates positive heart activity, heart rate 146 bpm. There is also a yolk sac demonstrated. No subchorionic hemorrhage. No myometrial abnormality. Right ovary measures 3.5 cm in length. Left ovary measures 3 cm in length. No adnexal mass demonstrated. No free cul-de-sac fluid Impression: 11 week 2 day, by crown-rump length measurement, single live intrauterine . No unusual features
[2018-07-04] MEDS ORDERED: REGLAN5 MG ORAL (15:16)
[2018-07-04] MEDS ORDERED: PRENATAL + DHA1 EAC1 PO (15:16)
--- NOTE | 2018-07-04 15:17 | NUR ---
ED Nurse Note: blood sample sent.
[2018-07-04] MEDS ORDERED: KENALOG 0.5% CR15 GM APPLIC (15:34)
[2018-07-04 15:50] VITALS: BP 110/56
--- NOTE | 2018-07-04 15:50 | NUR ---
ED Nurse Note: PT. AAOX4. AMBULATORY. LEFT WITH STEADY GAIT..REGARDING D/C PAPERS AND PRESCRIPTIONS. PT. VERBALIZED THE UNDERSTANDING OF THE TEACHING. ID ARMBAND REMOVED. LEFT WITH ALL BELONGINGS.
== END 2018-07-04 15:50 | disposition home or self-care (01) ==
LOC: EMR 13:01
DX: O26.891 Other specified pregnancy related conditions, first trimester (principal); R10.9 Unspecified abdominal pain; O99.711 Diseases of the skin and subcutaneous tissue complicating pregnancy, first trimester; L30.9 Dermatitis, unspecified; Z3A.11 11 weeks gestation of pregnancy
CPT/HCPCS: 36415; 76801; 76830; 81003; 81025; 84703; 99284

== ENCOUNTER 2018-11-04 22:08 | Emergency (ER) | payer MEDICAID ==
[~2018-11-04] VITALS: Ht 157.5 cm; Wt 54.4 kg
[~2018-11-04 22:08] MED LIST changes: +KENALOG 0.5% CR15 GM APPLIC; +PRENATAL + DHA1 EAC1 PO; +REGLAN5 MG ORAL
--- NOTE | 2018-11-04 22:23 | NUR ---
ED Nurse Note: Patient presents with complaints of two axillary boils. Patient has a history of recurrent boils. Addendum: 11/04/18 at 2239 by [email or web address] ED Nurse Note: I&D of left axillary.
[2018-11-04 22:24] VITALS: BP 97/57
[2018-11-04] MEDS ORDERED: Bactrim-DS 1 tab ORAL ONE (22:30)
[2018-11-04] MEDS ORDERED: HYDROcodone/Acetamin 5/325 tab ORAL ONE (22:30)
--- NOTE | 2018-11-04 22:32 | NUR ---
ED Nurse Note: PAtient tolerated medication well. Patient is awaiting ERMD for I&D of two right axillary abscesses. Will obtain consent.
[2018-11-04] MEDS ORDERED: BACTRIM DS TAB1 EAC1 ORAL (23:04)
[2018-11-04] MEDS ORDERED: HYDROCODON-ACE1 EA15 ORAL (23:04)
--- NOTE | 2018-11-04 23:04 | Emergency Room Report ---
History of Present Illness General Chief Complaint: Skin Rash/Abscess Source: Patient Present Illness HPI This is a 28-year-old female who has a history of hidradenitis. She presents with chief complaint of an abscess to bilateral axilla. The left one on the axilla has been there for over a week. No drainage. Swollen and painful. No fever chills. The right one been there for couple days. Pain is 9 out of 10. Worse with movement. Better with rest. Allergies: Coded Allergies: No Known Allergies (Unverified , 07/04/18) Patient History Past Medical History: see triage record, old chart reviewed Past Surgical History: none Pertinent Family History: none Social History: Denies: smoking Last Menstrual Period: 10/21 Now: No Immunizations: other Reviewed Nursing Documentation: PMH: Agreed; PSxH: Agreed Nursing Documentation-PMH Hx Cardiac Problems: No - ECZEMA Hx Hypertension: No Hx Pacemaker: No Hx Asthma: No Hx COPD: No Hx Diabetes: No Hx Cancer: No Hx Gastrointestinal Problems: No Hx Dialysis: No Hx Neurological Problems: No Hx Cerebrovascular Accident: No Hx Seizures: No Review of Systems Eye: Denies: eye pain, blurred vision ENT: Denies: ear pain, nose congestion, throat swelling Respiratory: Denies: cough, shortness of breath Cardiovascular: Denies: chest pain, palpitations Gastrointestinal: Denies: abdominal pain, diarrhea, nausea, vomiting Musculoskeletal: Denies: back pain, joint pain Skin: Denies: rash Neurological: Denies: headache, numbness Endocrine: Denies: increased thirst, increased urine Hematologic/Lymphatic: Denies: easy bruising All Other Systems: negative except mentioned in HPI Physical Exam Vital Signs Date Time Temp Pulse Resp B/P (MAP) Pulse Ox O2 Delivery O2 Flow Rate FiO2 11/04/18 22:11 98.1 79 17 97/57 (70) 98 Room Air Vitals unremarkable Sp02 EP Interpretation: reviewed, normal General Appearance: well appearing, no apparent distress, alert Head: normocephalic, atraumatic Eyes: bilateral eye PERRL, bilateral eye EOMI ENT: hearing grossly normal, normal pharynx Neck: full range of motion, supple, no meningismus Respiratory: chest non-tender, lungs clear, normal breath sounds Cardiovascular #1: regular rate, rhythm, no murmur Gastrointestinal: normal bowel sounds, non tender, no mass, no organomegaly, no bruit, non-distended Musculoskeletal: back normal, gait/station normal, normal range of motion, other - Left axilla: Large fluctuant mass measuring about 5 cm. Right axilla fluctuant mass measuring about 3 cm Psychiatric: mood/affect normal Procedures Incision and Drainage Incision and Drainage : Consent: Verbal Site: Bilateral axilla Blade Size: 11 I & D Procedure: betadine prep Wound Location: upper extremity, other Anesthesia: 1% Lidocaine Volume Anesthetic (ccs): 10 Patient Tolerated: Well Complications: None Progress Clean area with Betadine and then chlorhexidine. Local anesthetic with 1% lidocaine. I made a 3 cm incision axilla. There was copious amount of purulent discharge. Wound was irrigated. I made a 2 cm incision on the right axilla. Moderate amount of pus expressed. Patient tolerated procedure without any problem. Medical Decision Making Diagnostic Impression: Primary Impression: Abscess of axilla, right Additional Impression: Abscess of axilla, left ER Course Patient with an abscess to bilateral axilla. No evidence of necrotizing fasciitis. Will discharge home. Last Vital Signs Date Time Temp Pulse Resp B/P (MAP) Pulse Ox O2 Delivery O2 Flow Rate FiO2 11/04/18 22:24 98.1 79 17 97/57 98 Room Air Status: improved Disposition: HOME, SELF-CARE Condition: Stable Scripts Hydrocodone/Acetaminophen 5-325* (HYDROCODONE/ACETAMINOPHEN 5-325*) 1 Each Tablet 1 TAB ORAL Q6H PRN for For Pain, #15 TAB 0 Refills Prov: Nick Vargas MD 11/04/18 Trimethoprim/Sulfamethoxazole 160/800* (BACTRIM DS TABLET*) 1 Each Tablet 1 TAB ORAL Q12H, #14 TAB 0 Refills Prov: Nick Vargas MD 11/04/18 Referrals: [facility],REFERRING (PCP) Patient Instructions: Abscess Additional Instructions: Follow-up in 2 days for recheck. Either come back here or see your doctor. Return if worse. Nick Vargas MD Nov 04, 2018 23:04
--- NOTE | 2018-11-04 23:05 | NUR ---
ED Nurse Note: Patient cleared for diac Addendum: 11/04/18 at 2306 by [email or web address] ED Nurse Note: Patient cleared for discharge, ID band removed, Patient verbalized understanding of discharge instructions. PAtient departed with all belongings accompanied by her mother.
[2018-11-04 23:06] VITALS: BP 97/57
== END 2018-11-04 23:09 | disposition home or self-care (01) ==
LOC: EMR 22:26
DX: L02.412 Cutaneous abscess of left axilla (principal); L02.411 Cutaneous abscess of right axilla
CPT/HCPCS: 10060; 99283

== ENCOUNTER 2019-01-02 17:10 | Emergency (ER) | payer MEDICAID ==
[~2019-01-02] VITALS: Ht 160 cm; Wt 54.4 kg
[~2019-01-02 17:10] MED LIST changes: +BACTRIM DS TAB1 EAC1 ORAL; +HYDROCODON-ACE1 EA15 ORAL
[2019-01-02] MEDS ORDERED: NKM (17:18)
[2019-01-02 17:20] VITALS: BP 121/67
--- NOTE | 2019-01-02 17:21 | NUR ---
ED Nurse Note: CAME TO ED DUE TO SORE THROAT X3 DAYS. DENIES ANY FEVER AND CHILLS OR ANY EARACHE. ABLE TO TOLERATE ORAL INTAKE WITH DISCOMFORT. NO S/S OF FEVER AT THIS TIME.
[2019-01-02] MEDS ORDERED: Ketorolac 30mg Inj IV ONE (17:45)
[2019-01-02] MEDS ORDERED: Dexamethasone 4mg/ml vial IVP ONE (17:45)
[2019-01-02] MEDS ORDERED: Ampicillin/Sulbactam Sod 3 GM in NS 110 ML IVPB ONE (17:45)
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
--- NOTE | 2019-01-02 17:52 | NUR ---
ED Nurse Note: SPOKE WITH PHARMACY ABOUT UNASYN ANTIBIOTIC NOT IN [facility]. THEY WILL BRING THE MED IN TEN MIN
--- NOTE | 2019-01-02 18:28 | NUR ---
ED Nurse Note: VERIFIED WITH RICHARD PAYAN ABOUT THE LABS AND NS 500ML ORDER. SCHUYLER STATES THAT SHE WILL FIX THE ORDER.
[2019-01-02] MEDS ORDERED: AUGMENTIN 500-1 EACH ORAL (18:49)
[2019-01-02 18:54] VITALS: BP 121/67
--- NOTE | 2019-01-02 18:55 | NUR ---
ED Nurse Note: Pt cleared by health care Provider for discharge. DC instructions/prescription was given and explained to pt and verbalized understanding of teachings. All medical deviecs such as ID band removed. Pt is AAO x4, ambulatory and left with all personal belongings. Addendum: 01/02/19 at 1855 by [email or web address] ED Nurse Note: Pt cleared by health care Provider for discharge. DC instructions/prescription was given and explained to pt and verbalized understanding of teachings. All medical deviecs such as ID band and IV removed. Pt is AAO x4, ambulatory and left with all personal belongings.
== END 2019-01-02 18:56 | disposition home or self-care (01) ==
LOC: EMR 17:28
DX: J36 Peritonsillar abscess (principal)
CPT/HCPCS: 96365; 96375; 99284; J0295; J1100; J1885

== ENCOUNTER 2019-04-15 10:06 | Emergency (ER) | payer MEDICAID ==
[~2019-04-15] VITALS: Ht 160 cm; Wt 63.5 kg
[~2019-04-15 10:06] MED LIST changes: +AUGMENTIN 500-1 EACH ORAL
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
[2019-04-15 11:06] VITALS: BP 106/79
[2019-04-15] MEDS ORDERED: ADULT WAL-100 MG/5 M ORAL (11:10)
[2019-04-15] MEDS ORDERED: ZITHROMAX250 MG ORAL (11:10)
[2019-04-15 11:28] VITALS: BP 122/64
== END 2019-04-15 11:28 | disposition home or self-care (01) ==
LOC: EMR 10:42
DX: J18.9 Pneumonia, unspecified organism (principal)
CPT/HCPCS: 99282

== ENCOUNTER 2019-10-17 07:39 | Emergency (ER) | payer MEDICAID ==
[~2019-10-17] VITALS: Ht 160 cm; Wt 59.0 kg
[~2019-10-17 07:39] MED LIST changes: +ADULT WAL-100 MG/5 M ORAL; +ZITHROMAX250 MG ORAL
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
[2019-10-17] MEDS ORDERED: Ketorolac 30mg Inj IV ONE (08:00)
[2019-10-17 08:03] VITALS: BP 113/73
[2019-10-17 08:12] LABS: APPEARANCE,URINE CLEAR; BILIRUBIN, URINE NEGATIVE (NEGATIVE); GLUCOSE, URINE (UA) NEGATIVE (NEGATIVE); KETONES,URINE 2+ (NEGATIVE); LEUKOCYTE ESTERASE ,URINE 1+ (NEGATIVE); NITRITE,URINE NEGATIVE (NEGATIVE); PH,URINE 5 (4.5-8.0); PROTEIN,URINE 1+ (NEGATIVE); UROBILINOGEN,URINE 1 MG/DL (0.0-1.0)
[2019-10-17 08:17] LABS: COLOR,URINE YELLOW
[2019-10-17 08:48] LABS: ANION GAP 10 mmol/L (5-15); BLOOD UREA NITROGEN 9 mg/dL (7-18); CALCIUM 8.4 MG/DL (8.5-10.1); CARBON DIOXIDE 25 MMOL/L (21-32); CHLORIDE 102 MMOL/L (98-107); CREATININE 0.9 MG/DL (0.55-1.30); POTASSIUM 3.3 MMOL/L (3.5-5.1); SODIUM 137 MMOL/L (136-145)
[2019-10-17 08:52] LABS: ALANINE AMINOTRANSFERASE 17 U/L (12-78); ALBUMIN/GLOBULIN RATIO 0.8 (1.0-2.7); ALKALINE PHOSPHATASE 95 U/L (46-116); ASPARTATE AMINO TRANSFERASE 24 U/L (15-37); BILIRUBIN,TOTAL 0.3 MG/DL (0.2-1.0)
[2019-10-17 08:53] LABS: BASOPHILS % (AUTO) 0.8 % (0.0-2.0); EOSINOPHILS % (AUTO) 0.1 % (0.0-3.0); HEMOGLOBIN 13.6 G/DL (12.0-16.0); LYMPHOCYTES % (AUTO) 33.7 % (20.0-45.0); MEAN CORPUSCULAR VOLUME 87 FL (80-99); MONOCYTES % (AUTO) 7.6 % (1.0-10.0); NEUTROPHILS % (AUTO) 57.9 % (45.0-75.0); PLATELET COUNT 242 K/UL (150-450); RED BLOOD COUNT 5.05 M/UL (4.20-5.40); RED CELL DISTRIBUTION WIDTH 12.7 % (11.6-14.8); WHITE BLOOD COUNT 4.6 K/UL (4.8-10.8)
[2019-10-17 09:03] VITALS: BP 105/53
[2019-10-17] MEDS ORDERED: TYLENOL325 MG ORAL (10:23)
[2019-10-17] MEDS ORDERED: IBUPROFEN600 M1 ORAL (10:23)
[2019-10-17 10:33] VITALS: BP 110/56
== END 2019-10-17 10:34 | disposition home or self-care (01) ==
LOC: EMR 08:08
DX: R10.30 Lower abdominal pain, unspecified (principal); L30.9 Dermatitis, unspecified
CPT/HCPCS: 36415; 80053; 81003; 81025; 83690; 85025; 85610; 85730; 96361; 96374; 96375; J1885; J2405; J7030; Z7502; 99284

== ENCOUNTER 2020-01-07 08:53 | Emergency (ER) | payer MEDICAID ==
[~2020-01-07] VITALS: Ht 160 cm; Wt 63.5 kg
[~2020-01-07 08:53] MED LIST changes: +IBUPROFEN600 M1 ORAL; +TYLENOL325 MG ORAL
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
--- NOTE | 2020-01-07 09:00 | NUR ---
ED Nurse Note: Pt ambulated to ED c/o left and right lower abdomen pain for 1-2 days. Pt reports N/V but denies diarrhea. pt does not know if she is but is sexually active. pt report smell in her urine but has no vaginal discomfort; itching, burning. pt LMP is 12/26/19
[2020-01-07 09:07] VITALS: BP 102/61
--- NOTE | 2020-01-07 09:15 | NUR ---
ED Nurse Note: Pt blood and urine specimen sent to lab.
[2020-01-07] MEDS ORDERED: CEPHALEXIN500 MG ORAL (09:16)
[2020-01-07] MEDS ORDERED: ONDANSETRON ODT4 MG BC (09:16)
[2020-01-07] MEDS ORDERED: TYLENOL EXTRA500 MG ORAL (09:16)
[2020-01-07 09:23] LABS: APPEARANCE,URINE CLEAR; BILIRUBIN, URINE NEGATIVE (NEGATIVE); GLUCOSE, URINE (UA) NEGATIVE (NEGATIVE); KETONES,URINE 1+ (NEGATIVE); LEUKOCYTE ESTERASE ,URINE 2+ (NEGATIVE); NITRITE,URINE NEGATIVE (NEGATIVE); PH,URINE 7 (4.5-8.0); PROTEIN,URINE 1+ (NEGATIVE); UROBILINOGEN,URINE 8 MG/DL (0.0-1.0)
[2020-01-07 09:26] LABS: COLOR,URINE YELLOW
[2020-01-07 09:27] LABS: HEMATOCRIT 38.7 % (37.0-47.0); HEMOGLOBIN 12.7 G/DL (12.0-16.0); MEAN CORPUSCULAR VOLUME 82 FL (80-99); PLATELET COUNT 202 K/UL (150-450); RED BLOOD COUNT 4.74 M/UL (4.20-5.40)
[2020-01-07 09:43] LABS: INR 0.9 (0.9-1.1)
[2020-01-07] MEDS ORDERED: Cephalexin 250mg/5ml Susp 100mL Bottle ORAL ONE (09:45)
[2020-01-07 09:53] LABS: ANION GAP 10 mmol/L (5-15); BLOOD UREA NITROGEN 9 mg/dL (7-18); CALCIUM 8.9 MG/DL (8.5-10.1); CARBON DIOXIDE 23 MMOL/L (21-32); CHLORIDE 104 MMOL/L (98-107); CREATININE 0.6 MG/DL (0.55-1.30); POTASSIUM 3.3 MMOL/L (3.5-5.1); SODIUM 137 MMOL/L (136-145)
[2020-01-07 10:00] LABS: ALANINE AMINOTRANSFERASE 27 U/L (12-78); ALBUMIN 3.6 G/DL (3.4-5.0); ALBUMIN/GLOBULIN RATIO 0.8 (1.0-2.7); ALKALINE PHOSPHATASE 59 U/L (46-116); ASPARTATE AMINO TRANSFERASE 26 U/L (15-37); BILIRUBIN,TOTAL 0.4 MG/DL (0.2-1.0)
--- NOTE | 2020-01-07 10:02 | NUR ---
ED Nurse Note: US at bedside
[2020-01-07] MEDS ORDERED: Lidocaine 1% MPF 10mg/ml 5ml INJ ONE (10:15)
--- NOTE | 2020-01-07 10:43 | NUR ---
ED Nurse Note: US left bedside, per US pt is 8 weeks and 3 days .
--- NOTE | 2020-01-07 11:03 | NUR ---
Note renetta in EDM - 01/07/20 at 1103 by H[facility]ERO ED Nurse Note: PT returned from CT
--- NOTE | 2020-01-07 11:39 | Diagnostic Imaging Report ---
Indication: patient, pelvic pain Technique: Transabdominal and transvaginal images of the pelvis Comparison: 07/04/2018 Findings: Uterus measures 11.3 cm in length by 7.2 cm AP. Within the endometrium, there is a gestational sac. This demonstrates a pole with positive heart activity, heart rate 173 bpm. Hoskins-rump length is 2 mm, corresponding to estimated gestational age 8 weeks 4 days. A yolk sac is also visible. No evidence of subchorionic hemorrhage. Trace fluid is seen within the cul-de-sac. The ovaries are normal in size and demonstrate normal Doppler signal. Impression: Single live intrauterine , estimated gestational age 8 weeks 4 days by crown-rump length measurement. No unusual features
[2020-01-07 11:41] VITALS: BP 111/77
--- NOTE | 2020-01-07 11:41 | NUR ---
ER DISCHARGE NOTE: Patient is cleared to be discharged per ERMD, pt is aox4, on room air, with stable vital signs. pt was given dc and prescription instructions, pt was able to verbalize understanding, pt id band and iv site removed without complications. pt is able to ambulate with steady gait. pt took all belongings.
== END 2020-01-07 11:40 | disposition home or self-care (01) ==
LOC: EMR 09:10
DX: O26.891 Other specified pregnancy related conditions, first trimester (principal); O23.41 Unspecified infection of urinary tract in pregnancy, first trimester; Z3A.08 8 weeks gestation of pregnancy; R10.9 Unspecified abdominal pain
CPT/HCPCS: 36415; 76801; 76817; 80053; 81003; 81025; 83690; 84702; 85007; 85025; 85610; 85730; 86850; 86900; 86901; 96372; 96374; J0696; Z7502; 99284

== ENCOUNTER 2020-06-02 09:41 | Emergency (ER) | payer MEDICAID ==
[~2020-06-02] VITALS: Ht 160 cm; Wt 54.4 kg
[~2020-06-02 09:41] MED LIST changes: +ONDANSETRON ODT4 MG BC
--- NOTE | 2020-06-02 10:25 | NUR ---
ED Nurse Note: Pt walked into ED for L ankle pain and lower back pain 11/07 for 2 days. Pt also had MEREDITH 7/, pt is alert and ox4, ambulatory. Pt has been seen by ERMD. She has no wounds. She denies falling.
[2020-06-02 10:35] LABS: APPEARANCE,URINE SLIGHTLY CLOUDY; BILIRUBIN, URINE NEGATIVE (NEGATIVE); GLUCOSE, URINE (UA) NEGATIVE (NEGATIVE); KETONES,URINE NEGATIVE (NEGATIVE); LEUKOCYTE ESTERASE ,URINE 3+ (NEGATIVE); NITRITE,URINE NEGATIVE (NEGATIVE); PH,URINE 6 (4.5-8.0); PROTEIN,URINE 1+ (NEGATIVE); UROBILINOGEN,URINE NORMAL MG/DL (0.0-1.0)
[2020-06-02 10:50] LABS: COLOR,URINE YELLOW
[2020-06-02] MEDS ORDERED: Cephalexin 500mg cap ORAL ONE (11:00)
[2020-06-02] MEDS ORDERED: IBUPROFEN600 M1 ORAL (12:06)
[2020-06-02] MEDS ORDERED: CEPHALEXIN500 MG ORAL (12:06)
[2020-06-02 12:36] VITALS: BP 106/62
--- NOTE | 2020-06-02 12:36 | NUR ---
Note renetta in EDM - 06/02/20 at 1242 by EMA ER DISCHARGE NOTE: Patient is cleared to be discharged per PA, pt is aox4, on room air, with stable vital signs. pt was given dc and prescription instructions, pt was instructed on how to use crutches. pt was able to verbalize understanding, pt id band removed. pt is able to ambulate with steady gait. pt took all belongings.
--- NOTE | 2020-06-02 12:36 | NUR ---
ER DISCHARGE NOTE: Patient is cleared to be discharged per ERMD, pt is aox4, on room air, with stable vital signs. pt was given dc and prescription instructions, pt was instructed on how to use crutches. pt was able to verbalize understanding, pt id band removed. pt is able to ambulate with steady gait. pt took all belongings.
--- NOTE | 2020-06-02 18:16 | Diagnostic Imaging Report ---
Indication: Left ankle pain Technique: 3 views of the left ankle Comparison: none Findings: No acute fracture. No dislocation. The joint spaces are preserved Impression: Negative
--- NOTE | 2020-06-02 18:18 | Diagnostic Imaging Report ---
Indication: Left foot pain Technique: 3 views left foot Comparison: none Findings: No acute fracture. No dislocation. Joint spaces are preserved. Impression: Negative
--- NOTE | 2020-06-02 18:19 | Diagnostic Imaging Report ---
Indication: Lumbar spine pain Technique: 3 views of the lumbar spine Comparison: None Findings:Bony alignment is normal. Vertebral body heights are preserved. The disc spaces are preserved. The pedicles are intact. Sacral arches are preserved. Sacroiliac joint spaces are preserved Impression: Negative
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
== END 2020-06-02 12:36 | disposition home or self-care (01) ==
LOC: EMR 12:15
DX: S93.402A Sprain of unspecified ligament of left ankle, initial encounter (principal); S93.602A Unspecified sprain of left foot, initial encounter; N39.0 Urinary tract infection, site not specified; X58.XXXA Exposure to other specified factors, initial encounter; M54.5 Low back pain
CPT/HCPCS: 72020; 73610; 73630; 81003; 81025; 87086; Z7502; 99284